=== PATIENT | male | born 1945 | race Caucasian/White ===

== ENCOUNTER 2016-06-22 19:42 | Emergency (ER) | payer OTHER ==
[~2016-06-22] VITALS: Ht 177.8 cm; Wt 111.6 kg
[2016-06-22 20:14] LABS: HEMATOCRIT 39.7 % (38.0-50.0); MCH 31.9 PG (29.0-34.0); MCHC 34.3 G/DL (30.0-36.0); MEAN PLAT.VOLUME 9.5 uM^3 (9.0-12.4); PLATELET COUNT 315 K/uL (156-360); RBC DIS.WIDTH-CV 14.2 % (11.8-14.6); RBC DIS.WIDTH-SD 46.6 % (39-53); RED BLOOD COUNT 4.27 M/uL (4.00-5.50); WHITE BLOOD COUNT 8.8 K/uL (4.1-10.2)
[2016-06-22 20:29] LABS: CHLORIDE 105 mEq/L (99-109); GLUCOSE 123 mg/dL (70-99); POTASSIUM 4.1 mEq/L (3.7-5.4); SODIUM 136 mEq/L (136-147)
[2016-06-22 20:30] LABS: ANION GAP 9 MEQ/L (2-14)
[2016-06-22 20:31] LABS: TOTAL BILIRUBIN 0.7 mg/dL (0.0-1.0)
[2016-06-22 20:32] LABS: ALKALINE PHOSPHATASE 76 IU/L (3-129)
[2016-06-22 20:33] LABS: GFR ESTIMATE (CALCULATED) 53 mL/min/
[2016-06-22 20:34] LABS: UREA NITROGEN (BUN) 20 mg/dL (9-23)
[2016-06-22 20:41] LABS: LIPASE 27 U/L (1.0-51.0)
[2016-06-22 20:49] LABS: ADD MIUA? NO; BILIRUBIN NEGATIVE; BLOOD NEGATIVE; COLOR YELLOW ((YELLOW)); GLUCOSE (STRIP) NEGATIVE; KETONES 5; LEUKOCYTES NEGATIVE; NITRITE NEGATIVE; PROTEIN (STRIP) NEGATIVE; SPECIFIC GRAVITY 1.013 (1.000-1.030); UCUL ADDED? NO; UROBILINOGEN 0.2 MG/DL (0.2-1.0)
[2016-06-22] MEDS ORDERED: COLACE100 MG PO (21:43)
[2016-06-22] MEDS ORDERED: PRILOSEC20 MG PO (21:43)
[2016-06-22] MEDS ORDERED: REGLAN10 MG PO (21:43)
[2016-06-22 22:14] VITALS: BP 153/77
== END 2016-06-22 22:15 | disposition home or self-care (01) ==
LOC: EME 19:42
DX: K21.9 Gastro-esophageal reflux disease without esophagitis (principal); R10.9 Unspecified abdominal pain; R68.83 Chills (without fever); Z98.890 Other specified postprocedural states; Z85.46 Personal history of malignant neoplasm of prostate; Z85.528 Personal history of other malignant neoplasm of kidney; Z90.5 Acquired absence of kidney
CPT/HCPCS: 74176; 80053; 81003; 83690; 85027; 99281; 99284; J2405; J2765; J7030; S0028